=== PATIENT | male | born 1960 | race Caucasian/White ===

== ENCOUNTER 2016-04-01 07:23 | Emergency (ER) | payer BC ==
--- NOTE | 2016-04-01 07:33 | CPEKG ---
Heart Rate: 61 RR Interval: 984 P-R Interval: 184 QRSD Interval: 90 QT Interval: 412 QTC Interval: 415 P Aurora: 55 QRS Aurora: 65 T Wave Aurora: 82 EKG Severity - OTHERWISE NORMAL ECG - EKG Impression: SINUS RHYTHM EKG Impression: LOW VOLTAGE IN FRONTAL LEADS Electronically Signed By: Kamala Smith 01-Apr-2016 14:58:31
--- NOTE | 2016-04-01 07:45 | EDPHY ---
H & P Time Seen by Provider: 04/01/16 07:43 HPI/ROS: CHIEF COMPLAINT: Chest pain HISTORY OF PRESENT ILLNESS: This patient is a 56 year old man on daily aspirin, with history of hyperlipidemia treated with Atorvastatin, presenting with acute right-sided chest pain. Initially onset at 4:30am yesterday morning, with radiation down the right arm. Described as a dull ache. No modifying factors. The pain resolved spontaneously around 10am. He had no pain throughout the day yesterday, until recurrence at 3am this morning. Pain is rated at a 3/10 in severity currently. Denies associated symptoms. The patient exercises moderately , walks several miles daily. He walked yesterday, without symptoms. Denies recent heavy lifting. Cardiac risk factors: Hyperlipidemia, treated. Denies history of hypertension or diabetes. Denies family history of coronary disease. Lifelong non-smoker. He has never had a treadmill stress test. REVIEW OF SYSTEMS: Constitutional: No fever, no chills Eyes: No visual changes ENT: No sore throat Respiratory: No cough, no shortness of breath Cardiac: Chest pain radiating to the right arm. Gastrointestinal: No nausea, no vomiting, no abdominal pain Genitourinary: No hematuria, no dysuria Musculoskeletal: No leg pain or swelling Skin: No rash Neurological: No headache, no numbness, no weakness Psychiatric: No depression Past Medical/Surgical History: Treated hyperlipidemia Social History: Non-smoker, no alcohol or drug abuse Smoking Status: Never smoked Physical Exam: General Appearance: Alert, no distress Eyes: Pupils equal and round, no conjunctival pallor or injection ENT, Mouth: Mucous membranes moist Neck: Normal inspection Respiratory: Lungs are clear to auscultation Cardiovascular: Regular rate and rhythm Gastrointestinal: Abdomen is soft and non- tender Neurological: A&O, nonfocal, normal gait Musculoskeletal: No chest wall tenderness Skin: Warm and dry, no rash Extremities: Nontender, full range of motion of the right shoulder, no pedal edema Psychiatric: Mood and affect normal Constitutional: Initial Vital Signs Temperature (C) 36.4 C 04/01/16 07:24 Heart Rate 68 04/01/16 07:24 Respiratory Rate 18 04/01/16 07:24 Blood Pressure 136/96 H 04/01/16 07:24 O2 Sat (%) 94 04/01/16 07:24 O2 Delivery Mode Room Air Allergies/Adverse Reactions: hydrocodone [Hydrocodone] Allergy (Mild, Verified 04/01/16 07:24) Other-Enter Comments oxycodone [Oxycodone] Allergy (Mild, Verified 04/01/16 07:24) Other-Enter Comments Home Medications: Medication Instructions Recorded Aspirin 325 mg (*) 04/01/16 Lipitor 04/01/16 Medical Decision Making - Diagnostics EKG Interpretation: The 12 lead EKG was interpreted by myself. Sinus rhythm, rate 61, low voltage in frontal leads. See hard copy and/or "tracemaster" electronic copy for interpretation. Imaging: Study: PA and Lateral Chest X-ray Indication: Chest pain Results: I viewed the images myself on the PACS system. My interpretation of the images is: No acute findings. The radiologist interpretation is: Borderline -cardiomegaly, without congestive heart failure or focal infiltrate. ED Course/Re-evaluation: IV established. Placed on a classroom monitor. First Troponin (4 hours after pain onset) is negative. D-dimer is negative. Remainder of bloodwork is normal. EKG is normal without acute ischemic changes. Second troponin (6 hours) is negative. I feel that I can safely exclude acute coronary syndrome in this patient. He has atypical pain and 2 troponins ( including hour troponin) are normal. In addition I feel that I can safely exclude acute pulmonary embolism with normal vital signs including normal oxygen saturation and no risk factors for acute pulmonary embolism. I have referred the patient to cardiology for follow up this week. I also recommended that he call their office tomorrow to arrange outpatient treadmill stress test. Strict return precautions given. Differential Diagnosis: Differential diagnosis includes though it is not limited to pneumonia, pneumothorax, pulmonary embolism, aortic dissection, pericarditis, acute coronary syndrome. - Data Points Laboratory Results: Laboratory Results 04/01/16 07:39 04/01/16 07:39 Departure - Departure Disposition: Home, Routine, Self-Care Clinical Impression: Chest pain Condition: Good Instructions: Chest Pain (ED) Additional Instructions: Based upon the testing done in the Emergency Department today we see no evidence of a heart attack. We are unable to fully exclude coronary artery disease based upon the testing available in the Emergency Department. For this reason, we would like you to be seen by cardiology for consideration of additional testing within the next 3 days. Please contact the finance specialist you have been referred to schedule this appointment as soon as possible. Their offices are typically open from 8:30am-5pm M-F. Please call the office tomorrow to arrange this. We also recommend you arrange a treadmill stress test with their office within the next 1-2 days. Please return to the Emergency Department immediately for any recurrent chest pain, difficulty breathing or other concerns. Referrals: Froylan Pacheco MD [Primary Care Provider] - As per Instructions Vel Ryder MD [Medical Doctor] - As per Instructions (Cardiology) Report Scribed for: Kamala Smith Report Scribed by: Maribell Carrasquillo Date of Report: 04/01/16 Time of Report: 07:45 Physician Review and Approval Statement: 04/01/16 07:45 Portions of this note were transcribed by a biomedical equipment support specialist. I personally performed a history, physical exam, medical decision making, and confirmed accuracy of information the transcribed note.
[2016-04-01 08:04] LABS: % IMMATURE GRANULYOCYTES 0.2 % (0.0-1.1); ABSOLUTE IMMATURE GRANULOCYTES 0.01 10^3/uL (0.00-0.10); ADD DIFF? NO; ADD MORPH? NO; ADD SCAN? NO; ATYPICAL LYMPHOCYTE FLAG 0 (0-99); FRAGMENT RBC FLAG 0 (0-99); HEMATOCRIT 47.3 % (40.0-51.0); HEMOGLOBIN 16.3 g/dL (13.7-17.5); LEFT SHIFT FLG 0 (0-99); LIPEMIA HEMOLYSIS FLAG 90 (0-99); MEAN CELL HEMOGLOBIN 31.1 pg (27.9-34.1); MEAN CELL HEMOGLOBIN CONCENTR. 34.5 g/dL (32.4-36.7); MEAN CELL VOLUME 90.3 fL (81.5-99.8); MEAN PLATELET VOLUME 8.6 fL (8.7-11.7); PLATELET CLUMPS FLAG 0 (0-99); PLATELET COUNT 222 10^3/uL (150-400); RED BLOOD CELL COUNT 5.24 10^6/uL (4.40-6.38); RED CELL DISTRIBUTION WIDTH 12.4 % (11.5-15.2)
[2016-04-01 08:25] LABS: ANION GAP 11 mEq/L (8-16); CALCIUM 9.4 mg/dL (8.5-10.4); CARBON DIOXIDE 24 mEq/l (22-31); CHLORIDE 108 mEq/L (97-110); CREATININE 1.1 mg/dL (0.7-1.3); GLOMERULAR FILTRATION RATE > 60; GLUCOSE 109 mg/dL (70-100); POTASSIUM 3.9 mEq/L (3.5-5.2); SODIUM 143 mEq/L (134-144)
[2016-04-01 08:35] LABS: TROPONIN I 0.012 ng/mL (0-0.034)
--- NOTE | 2016-04-01 08:42 | DX ---
Chest, PA and Lateral Upright Views, at 7:45 a.m. Clinical history: 56-year-old male with chest pain beginning yesterday and continuing today. Comparison Study: None. Findings: Telemetry monitoring lead lines are present. The cardiac silhouette is mildly enlarged, wit h a C: T ratio of 17.7 : 33.6 cm. There is no focal alveolar consolidation, pleural effusion, periphe ral interstitial edema, or pneumothorax. The trachea is midline. The osseous structures are age-appro priate. There are some orthopedic anchors projected over the right humeral head. Impression: Borderline-cardiomegaly, without congestive heart failure or focal infiltrate.
[2016-04-01 09:12] VITALS: RESP 16
[2016-04-01 10:53] VITALS: BP 122/72; PULSE 55; TEMP 97.9; O2SAT 94
== END 2016-04-01 10:53 | disposition home or self-care (01) ==
DX: R07.9 Chest pain, unspecified (principal)